=== PATIENT | male | born 2005 | race African-American/Black ===

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

== ENCOUNTER 2024-01-17 22:49 | Emergency (ER) | payer OTHER, SELFPAY | END 2024-01-18 01:10 | disposition home or self-care (01) | LOC: CSHERS 22:49 | DX: R09.1 Pleurisy (principal); F17.290 Nicotine dependence, other tobacco product, uncomplicated | CPT/HCPCS: 71045; 93005 ==